=== PATIENT | female | born 1940 | race Caucasian/White ===

== ENCOUNTER → 2017-08-10 | Day surgery (SDC) | payer MEDICARE, OTHER ==
[~2017-08-10] VITALS: Ht 160 cm; Wt 61.2 kg
[~2017-08-10] MED LIST: ATOR20TA PO; AZIT500T5 PO; Albuterol HFA 60 Puff 8 Gm Inhaler INHALATION ONE; DOCU240C41 PO; FERR325C PO; INFL100V IV; IPRA4AER IH; LEVO50TA6 PO; Lactated Ringer's 1,000 ML IV ONE; OLME40TA3 PO; Propofol 10,000 mCg/mL 20 mL Inj ONE; SYMINH INHALATION; TERB250T11 PO; TRAZ-115 PO
[2017-08-10 09:58] VITALS: BP 143/72; PULSE 48; PULSE 5; RESP 16; O2SAT 95
--- NOTE | 2017-08-10 11:21 | PCM.HPANE ---
Patient Data Date of Service: Aug 10, 2017 Surgeon Admitting Provider: Attending Provider:Uche Dobbs MD Primary Care Physician:Daniel Ge MD Other Provider:David Mcqueen Anesthesia Reason for Visit Crohn's Disease, Meraz's Esophagus Ht/WT & BMI Height (Feet): 5 Height (Inches): 3 Weight (Kilograms): 61.24 Body Mass Index 23.00 Allergies Coded Allergies: latex (Verified Allergy, Unknown, 08/06/17) Past Anesthesia History Anesthesia History: Denies:: Abnormal Airway, Anesthesia Reactions, Difficult Intubation, Fam Anesthesia Reaction, Fam Malignant Hypertherm, Malignant Hyperthermia Diabetes History Hx Diabetes?: No MRSA MRSA: No Medications Blood Thinner: Aspirin Hypertension Medication: No Home Meds Incl Beta Karan: No Reported Medications Docusate Calcium (Stool Softener)240 Mg Dgmouoe501 Mg PO QID 06/18/16 Terbinafine 250 Mg Fzqxnp338 Mg PO DAILY 06/18/16 Atorvastatin (Lipitor)20 Mg Yjoyrg23 Mg PO HS Ref 0 06/18/16 Ferrous Sulfate (Iron)325 Mg Capsule.er325 Mg PO DAILY 02/27/16 Trazodone 50 Mg Qmwqro209 Mg PO HS Ref 0 08/01/15 Infliximab (Remicade)10 Mg/Ml Ysu449 Mg IV d5egwbk- last dose 10/07/16 08/01/15 Albuterol/Ipratropium (Combivent Respimat Inhal Burnham)120 Spr/4 Gm Inhaler1 Puff IH QID #1 INH Ref 0 08/01/15 Olmesartan (Benicar)40 Mg Wycghl75 Mg PO DAILY Ref 0 08/01/15 Levothyroxine 50 Mcg Bjxmfh62 Mcg PO DAILY 30 Days Ref 0 12/13/14 Discontinued Reported Medications Azithromycin 500 Mg Kqxncl323 Mg PO DAILY Ref 0 08/06/17 Budesonide/Formoterol 160-4.5 mcg Inh (Symbicort 160-4.5 mcg Inh)120 Puff Inhaler1 Puff INHALATION BID #1 INHALER Ref 0 08/06/17 History History of ENT Problems?: Yes HEENT History: Positive for:: Cataracts (Lens replacement 06/15/16) Hearing Problem Denies:: Abnormal Airway Difficult Intubation Dysphagia Denture Type: Full- Upper Full- Lower Teeth Condition: No Teeth Hx of Heart Problems?: No Cardiovascular History: Positive for:: Hypertension Denies:: AICD Atrial Fibrillation Cardiac Surgery Chest Pain Congestive Heart Failure Edema Heart Murmur Irregular Heartbeat Pacemaker Thrombophlebitis Valvular Heart Disease Hx of Respiratory Problem?: Yes Respiratory History: Positive for:: COPD Cough Dyspnea Emphysema Pneumonia Denies:: Asthma Chest Surgery Hemoptysis Oxygen Administration Tuberculosis Use of C-PAP Machine Hx Neurologic Problems?: No Neurological History: Positive for:: Headaches (few) Denies:: Alzheimer's Disease CVA Dementia Dizziness (when walking upstair and downstairs) Parkinson's Disease Seizures Hx of GI Problems?: Yes Hx of Problems?: No Female Hx: Denies:: Currently Endometriosis Pelvic Inflammatory Problems with Breasts? Skin History: Denies:: History Skin Disorders? (ezema) Pressure Ulcers Hx Musculoskeletal Problems?: Yes Musculoskeletal History: Denies:: Back Injury Joint Replacement Musculoskeletal Trauma Hx of Psycho/Social Problems?: Yes Psycho Social History: Positive for:: Anxiety Hx Depression Denies:: Bipolar Disorder Suicide Attempt Hx Surgeries?: Yes (GALLBLADDER, TONSILS, HYSTERECTOMY, APPY, CERVIX ) Hx Any Other Health Problems?: Yes Other History: Positive for:: Hospitalization Thyroid Disease (hypo) Denies:: Cancer Endocrine Disease History Blood Transfusions: Denies:: Blood Transfusions Hx Diabetes: No Hx Alcohol Use: NoHx Substance Use: No Smoking Status: Current Every Day Smoker Have You Smoked inLast 12 mo: Yes Stop/Bang Treated for Sleep Apnea?: No Do You Have a CPAP Machine?: No S-Snoring: Do You Snore Loudly: Yes T-Tired: feel tired, fatigued: No O-Obsered: Observed not breath: No P-Blood Pressure: treated: No B- Body Mass Index > 35 kg/m2: Yes A- Age over 50: Yes N- Neck Large Circumference: No G- Gender Male: No MARIE Total Score: 3 MARIE Risk Assessment: Low Risk, <3 Yes Risk Assessment Category Category 1A: Patient has history of documented sleep apnea, and HAS NOT received any narcotic, sedative or anesthesia administration during this stay. Category 1B: Patient has history of documented sleep apnea, and HAS received any narcotic , sedative or anesthesia administration during this stay Category 2: Patient has SUSPECTED Obstructive Sleep Apnea, and HAS received any narcotic , sedative or anesthesia administration during this stay. Category 3: Patient has SUSPECTED Obstructive Sleep Apnea and HAS NOT received narcotic, sedative or anesthesia administration during this stay. Category 4: Outpatient in Procedural Areas with known sleep apnea or who screen positive for High Risk via the STOP/BANG questionnaire. Exam Exam Vital Signs Vital Signs Date Time Temp Pulse Resp B/P Pulse Ox O2 Delivery O2 Flow Rate FiO2 08/10/17 09:58 48 16 143/72 95 Room Air General Appearance: Oriented X3 HEENT/AIRWAY: MP 3 Lungs: Clear to Auscultation Heart: Exam Unremarkable Meds/Labs/Diagnostics Admission Meds Current Medications Lactated Ringer's (Lr) 1,000 ml @ 10 mls/hr Q24H ONCE IV Last administered on 08/10/17t 10:07; Start 08/10/17 at 06:00; Stop 08/11/17 at 05:59 Plan Impression Patient chart reviewed, patient interviewed and anesthestic plan with risks, benefits, and alternatives discussed, and informed consent obtained. NPO per Anesth. Guidelines: Yes ASA Physical Status: ASA3 Severe Disease Anesthetic Plan: MAC Bene/Risks/Altern/Consents: Yes HP Complete Prior to Induction: Yes Rivera Ortiz MD Aug 10, 2017 11:21
[2017-08-10 11:27] VITALS: BP 98/47; PULSE 62; RESP 14; O2SAT 96
[2017-08-10 11:45] VITALS: BP 120/69; PULSE 81; RESP 14; O2SAT 96
--- NOTE | 2017-08-10 12:07 | PCM.ANEP1 ---
Post Anesthesia PACU Phase 1 Assessment Vital Signs Vital Signs Date Time Temp Pulse Resp B/P Pulse Ox O2 Delivery O2 Flow Rate FiO2 08/10/17 11:45 81 14 120/69 96 Room Air 08/10/17 11:27 62 14 98/47 96 Room Air 08/10/17 09:58 48 16 143/72 95 Room Air Level of Alertness: Awake, talking Pain: No Nausea or Vomiting: No CV Function & Hydration Stable: Yes Airway Device: Oxygen Delivery: Room Air Lungs: Clear to Auscultation PACU Phase 2 Assessment Complications: No Follow up Care: N/A Patient Instructions Provided: N/A Rivera Ortiz MD Aug 10, 2017 12:07
--- NOTE | 2017-08-10 12:19 | ENDO ---
[address] [address] ENDOSCOPY PROCEDURE PATIENT: ADRIANO CEJA : 1940 MR#: [id number] ADMIT: 08/10/2017 JOB ID: [id number] DATE: 08/10/2017 PRIMARY PROVIDER: Daniel Ge MD PROCEDURES: 1. Esophagogastroduodenoscopy. 2. Colonoscopy with hot snare polypectomy and biopsies. 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 She returns for surveillance. She also has a history of colon polyps. EQUIPMENT: 1. PCF H 180 L. 2. GIF H 180 J. SEDATION: Monitored anesthesia as provided by Dr. Rivera Ortiz MD. COMPLICATIONS: None identified. BOWEL PREPARATION: Fair, adequate exam. PROCEDURE IN DETAIL: After the risks and benefits were explained, written and verbal informed consent was obtained. The patient was brought into the endoscopy suite and placed into the left lateral decubitus position. Sedation was achieved using the above stated medications with the addition of oxygen via nasal cannula. The scope was introduced into the mouth through the bite block and advanced to the second portion of the duodenum. The scope was slowly withdrawn to carefully examine the mucosa for any defects or lesions. Retroflexed views were accomplished in the stomach. The stomach was decompressed. The scope removed from the patient who demonstrated suboptimal tolerance of the examination. She desaturated during the exam and I had to pull out before obtaining routine biopsies at the distal esophagus, GE junction. Based on how poorly she tolerated the exam today, I did not feel it was worth the risk for the patient to repeat the exam. We turned the patient around after oxygenating her and restoring pulse ox to greater than 90%. Digital rectal examination was accomplished. No significant pathology appreciated. The scope introduced into the rectum and advanced to the cecum as identified by the appendiceal orifice and ileocecal valve. The terminal ileum was accessed. The scope then slowly withdrawn to carefully examine the mucosa for any defects or lesions. Multiple direct views were made through the dentate line for exclusion of pathology. The colon was decompressed. The scope removed from the patient who tolerated the procedure well. FINDINGS: 1. Duodenum: This appeared visually normal from the bulb through to the second portion. 2. Stomach: No ulcers, no outlet obstruction. No mass lesions. No significant mucosal pathology appreciated throughout. Retroflexed views of the LES were unremarkable. 3. Esophagus: The squamocolumnar junction was a little irregular and there was evidence of perhaps some patchy areas of Meraz's islands in the distal 0.5 cm of the esophagus. No evidence of any active inflammation. No suggestion of any neoplastic effects or nodularity. The biopsy was not acquired today because of the patient's difficulty in tolerating the exam as described above. The remainder of the esophagus appeared unremarkable. 4. Terminal ileum: This was visually normal. 5. Colon: There were a couple of diminutive polyps removed with cold forceps in the cecum. There were two polyps in the transverse colon removed by way of hot snare. The largest of these was perhaps about 7-8 mm. In the descending colon, there were another couple of polyps also removed by way of hot snare. I took random colon biopsies in the right colon, left colon and rectosigmoid region. I did not see any evidence of active colitis throughout. There was a fairly twisty sigmoid colon with some mild diffuse erythema through the wall in that region only. There was some scarring effect from old inflammation in the rectosigmoid region as well. ENDOSCOPIC DIAGNOSES: 1. 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 2. Hiatal hernia. 3. Otherwise visually unremarkable esophagogastroduodenoscopy. 4. Colon polyps. 5. Diverticulosis (not mentioned above). 6. Quiescent colitis. 7. Mild internal hemorrhoids. RECOMMENDATIONS: 1. Await histopathology. 2. Repeat colonoscopy in the next approximately 18 months. I would recommend only repeating the EGD at this time should there be any change in symptoms or with increased reflux, etc.
--- NOTE | 2017-08-11 17:58 | PATH ---
SURGICAL PATHOLOGY Attending Physician:Jamel Mitchell CASE STATUS: Signed Out PATIENT NAME: ADRIANO CEJA PID: [id number] : 1940 DATE COLLECTED:08/10/2017 22:01 SPECIMEN: 1: Colon, Polyp 2: Colon, Polyp 3: Colon, Biopsy 4: Colon, Polyp 5: Colon, Biopsy 6: Colon, Biopsy CLINICAL HISTORY: POLYPS, CROHN'S 1). TRANSVERSE COLON POLYPS 2). CECUM POLYPS 3). RIGHT COLON BIOPSY 4). DESCENDING COLON POLYP 5). LEFT COLON BIOPSY 6). RECTO-SIGMOID BIOPSY FINAL DIAGNOSIS: 1.TRANSVERSE COLON POLYPS, BIOPSY: TUBULAR ADENOMA X2. 2.CECAL POLYPS, BIOPSY: TUBULAR ADENOMA X2. 4.DESCENDING COLON POLYPS, BIOPSIES: TUBULAR ADENOMA X1. HYPERPLASTIC POLYP X1. 3., 5. AND 6. RIGHT COLON, LEFT COLON, RECTOSIGMOID COLON, BIOPSIES: COLONIC MUCOSA WITH NO SIGNIFICANT DIAGNOSTIC ABNORMALITY. NEGATIVE FOR ACTIVE INFLAMMATION, GRANULOMATA, DYSPLASIA OR MALIGNANCY. ICD10 D12.6 GROSS DESCRIPTION: The specimen is received in six formalin filled containers labeled with the patient's name. 1). The specimen is labeled "transverse colon polyp" and consists of 2 portions of tissue which aggregate to 0.3 x 0.3 x 0.2 CM. The specimen is entirely submitted in cassette 1A. 2). The specimen is labeled "cecum polyp" and consists of 2 portions of tissue which aggregate to 0.2 x 0.2 x 0.2 CM. The specimen is entirely submitted in cassette 2A. 3). The specimen is labeled "right colon" and consists of 2 portions of tissue which aggregate to 0.2 x 0.2 x 0.2 CM. The specimen is entirely submitted in cassette 3A. 4). The specimen is labeled "descending colon polyp" and consists of 2 portions of tissue which aggregate to 0.6 x 0.6 x 0.5 CM. The specimen is entirely submitted in cassette 4A. 5). The specimen is labeled "left colon" and consists of 2 portions of tissue which aggregate to 0.2 x 0.2 x 0.2 CM. The specimen is entirely submitted in cassette 5A. 6). The specimen is labeled "rectal-sigmoid" and consists of 2 tiny portions of tissue which aggregate to 0.2 x 0.2 x 0.2 CM. The specimen is entirely submitted in cassette 6A. 08/10/2017TX MICRO DESCRIPTION: See diagnosis. ICD-9 CODES: CPT CODES: 1: 74999 2: 83132 3: 45801 4: 05888 5: 79378 6: 80737 Electronically Signed Out Wally Jung MD, Ph.D. [facility] [address], [place] [address] Technical component performed at [facility], [address], [place], [address]
== END | disposition home or self-care (01) ==
LOC: END 00:30
PROVIDERS: ATTEND Internal Medicine Gastroenterology
DX: D12.3 Benign neoplasm of transverse colon (principal); D12.0 Benign neoplasm of cecum; D12.4 Benign neoplasm of descending colon; K63.5 Polyp of colon; K64.8 Other hemorrhoids; K57.30 Diverticulosis of large intestine without perforation or abscess without bleeding; K44.9 Diaphragmatic hernia without obstruction or gangrene; K50.10 Crohn's disease of large intestine without complications; K22.70 Barrett's esophagus without dysplasia; I10 Essential (primary) hypertension; E78.5 Hyperlipidemia, unspecified; E03.9 Hypothyroidism, unspecified; F41.8 Other specified anxiety disorders; J44.9 Chronic obstructive pulmonary disease, unspecified; F17.210 Nicotine dependence, cigarettes, uncomplicated; Z90.710 Acquired absence of both cervix and uterus; Z79.82 Long term (current) use of aspirin
CPT/HCPCS: 43235; 45380; 45385; 88305; J2704; J7120